=== PATIENT | female | born 1975 | race Caucasian/White ===

== ENCOUNTER 2019-11-21 08:29 | Day surgery (SDC) | payer OTHER ==
[2019-11-21] MEDS ORDERED: ANESTHESIA TRAY IN PYXIS 1 EA TRAY MC ONE (09:06)
[2019-11-21] MEDS ORDERED: MIDAZOLAM HCL 2 MG/2ML VIAL ONE (10:26)
[2019-11-21] MEDS ORDERED: SCOPOLAMINE HBR 1 EA PATCH.TD72 TD ONE (10:27)
[2019-11-21] MEDS ORDERED: BUPIVACAINE 0.5 % PF 150 MG/30 ML VIAL ONE (10:58)
[2019-11-21] MEDS ORDERED: HYDROMORPHONE 1 MG/1 ML DISP.SYRIN ONE (11:32)
[2019-11-21] MEDS ORDERED: NITROGLYCERIN 0.4 MG/TAB BOTTLE ONE (11:38)
[2019-11-21] MEDS ORDERED: HYDROCODONE/APAP 10/325MG 1 EA TABLET PO PRN (13:00)
== END 2019-11-21 13:20 | disposition home or self-care (01) ==
LOC: DS 08:29
PROVIDERS: ATTEND Orthopaedic Surgery
DX: M65.4 Radial styloid tenosynovitis [de Quervain] (principal); Z98.890 Other specified postprocedural states; Z79.899 Other long term (current) drug therapy; Z91.040 Latex allergy status
CPT/HCPCS: 25000; 36415; 84484; 84703; 93005; 93307; J1170; J2250; J3490